=== PATIENT | female | born 1970 | race African-American/Black ===

== ENCOUNTER 2017-02-16 14:17 | Inpatient (IN) | payer OTHER ==
[2017-02-16 15:05] VITALS: BMI 20.2
--- NOTE | 2017-02-16 15:45 | HP ---
CIWA Score - CIWA Score Nausea/Vomitin Muscle Tremors: 3 Anxiety: 3 Agitation: 3 Paroxysmal Sweats: 2 Orientation: 0-Oriented Tacttile Disturbances: 2-Mild Itch/Numbness/Burn Auditory Disturbances: 2-Mild Harshness/Frighten Visual Disturbances: 1-Very Mild Sensitivity Headache: 2-Mild CIWA-Ar Total Score: 21 Admission ROS BHS - HPI Chief Complaint: i need help to stop drinking alcohol Allergies/Adverse Reactions: Allergies Allergy/AdvReac Type Severity Reaction Status Date / Time peach Allergy Intermediate Uncoded 02/16/17 15:46 apple Allergy Uncoded 02/16/17 15:48 History of Present Illness: this 46 years old female with ALCOHOL DEPENDENCE,SEEKING DETOX,LAST TREATMENT 2014 [facility] MULTIPLE ADMISSIONS IN THE PAST, ANXIETY,DEPRESSION SYNCOPE NO SIGNIFICANT PERIOD OF SOBRIETY Exam Limitations: No Limitations - Ebola screening Have you traveled outside of the country in the last 21 days: No Have you had contact with anyone from an Ebola affected area: No Have you been sick,other than usual withdrawal symptoms: No Do you have a fever: No - Review of Systems Constitutional: Loss of Appetite, Malaise, Night Sweats, Changes in sleep, Weakness, Unintentional Wgt. Loss EENT: reports: Nose Congestion Respiratory: reports: No Symptoms reported Cardiac: reports: No Symptoms Reported GI: reports: Diarrhea, Nausea, Vomiting, Abdominal cramping : reports: No Symptoms Reported Musculoskeletal: reports: Back Pain, Muscle Pain Integumentary: reports: Dryness Neuro: reports: No Symptoms reported, Headache, Tremors Endocrine: reports: No Symptoms Reported Hematology: reports: No Symptoms Reported Psychiatric: reports: Anxious, Depressed (INSOMNIA) Patient History - Patient Medical History Hx Anemia: No Hx Asthma: No Hx Chronic Obstructive Pulmonary Disease (COPD): No Hx Cancer: No Hx Cardiac Disorders: No Hx Congestive Heart Failure: No Hx Hypertension: No Hx Hypercholesterolemia: No Hx Pacemaker: No HX Cerebrovascular Accident: No Hx Seizures: No Hx Dementia: No Hx Diabetes: No Hx Gastrointestinal Disorders: No Hx Liver Disease: No Hx Genitourinary Disorders: No Hx Sexually Transmitted Disorders: No Hx Renal Disease (ESRD): No Hx Thyroid Disease: No Hx Human Immunodeficiency Virus (HIV): No (LAST 08/18) Hx Hepatitis C: No Hx Depression: Yes (ANXIETY,INSOMNIA) Hx Suicide Attempt: Yes (ATTEMPTED TO DROWN HERSELF) Hx Bipolar Disorder: No Hx Schizophrenia: No Other Medical History: NO SUICIDAL,NO HOMICIDAL - Patient Surgical History Past Surgical History: Yes Hx Hysterectomy: Yes (IN 2006 FOR FIBROID UTERUS AT [facility]) - PPD History Previous Implant?: Yes Documented Results: Negative w/o proof Implanted On Prior [facility] Admission?: No PPD to be Administered?: Yes - Reproductive History Patient is a Female of Child Bearing Age (11 -55 yrs old): Yes Patient : No - Smoking Cessation Smoking history: Current every day smoker Have you smoked in the past 12 months: Yes Cigars Per Day: 10 Hx Chewing Tobacco Use: No Initiated information on smoking cessation: Yes 'Breaking Loose' booklet given: 02/16/17 - Substance & Tx. History Hx Alcohol Use: Yes Hx Substance Use: No Substance Use Type: Alcohol Hx Substance Use Treatment: Yes ([facility] 2014) - Substances Abused Alcohol Route: Oral Frequency: Daily Amount used: 6 OF 24 OZS OF BEER Age of first use: 17 Date of Last Use: 02/16/17 Family Disease History - Family Disease History Family Disease History: Diabetes: Mother (ALCOHOL,CVA,), Brother ( ALCOHOL,), Sister (ALCOHOL,), Other: Mother Admission Physical Exam [facility] - Vital Signs Vital Signs: Vital Signs - 24 hr 02/16/17 15:01 Temperature 98.3 F Pulse Rate 100 H Respiratory 20 Rate Blood Pressure 147/99 - Physical General Appearance: Yes: Moderate Distress, Tremorous, Irritable, Sweating, Anxious HEENTM: Yes: LYNNE, Pharynx Normal Respiratory: Yes: Within Normal Limits, Lungs Clear, Normal Breath Sounds Neck: Yes: Within Normal Limits, Supple, Trachea in good position Breast: Yes: Breast Exam Deferred Cardiology: Yes: Tachycardia Abdominal: Yes: Within Normal Limits, Normal Bowel Sounds, Non Tender, Soft, Surgical Scar Genitourinary: Yes: Within Normal Limits Back: Yes: Muscle Spasm Musculoskeletal: Yes: Within Normal Limits, Back pain, Muscle Pain Extremities: Yes: Tremors Neurological: Yes: front office specialist II-XII NML intact, Alert, Motor Strength 5/5 Integumentary: Yes: Dry Lymphatic: Yes: Within Normal Limits - Diagnostic (1) Alcohol dependence with uncomplicated withdrawal Current Visit: Yes Status: Acute (2) Syncope Current Visit: Yes Status: Acute (3) Nicotine dependence Current Visit: Yes Status: Acute (4) Weight loss Current Visit: Yes Status: Acute (5) Anxiety and depression Current Visit: Yes Status: Acute (6) History of hysterectomy Current Visit: Yes Status: Acute Cleared for Admission [facility] - Detox or Rehab [facility] Level of Care: Medically Managed Detox Regimen/Protocol: Librium S Breath Alcohol Content Breath Alcohol Content: 0.091 Urine Pregancy Test - Result Urine Test Results: Negative- NO Line Present Urine Drug Screen - Results Drug Screen Negative: Yes
[2017-02-16] MEDS ORDERED: chlordiazePOXIDE HCL 25 MG CAPSULE PO PRN (16:06)
[2017-02-16] MEDS ORDERED: P-EPHED 60MG/TRIPROLIDI 2.5MG TABLET PO PRN (16:06)
[2017-02-16] MEDS ORDERED: IBUPROFEN 400 MG TABLET (FP) PO PRN (16:06)
[2017-02-16] MEDS ORDERED: MAGNESIUM HYDROX 2400MG/30ML ORAL SUSPENSION 30 ML CUP PO PRN (16:06)
[2017-02-16] MEDS ORDERED: MENTHOL/PHENOL 1 EACH UD MM PRN (16:06)
[2017-02-16] MEDS ORDERED: chlordiazePOXIDE HCL 25 MG CAPSULE PO ONE (16:06)
[2017-02-16] MEDS ORDERED: ACETAMINOPHEN 325 MG TABLET (FP) PO PRN (16:06)
[2017-02-16] MEDS ORDERED: guaiFENesin/D-METHORPHAN HB 10 ML UNIT-DOSE CUPS PO PRN (16:06)
[2017-02-16] MEDS ORDERED: hydrOXYzine PAMOATE 25 MG CAPSULE (FP) PO PRN (16:06)
[2017-02-16] MEDS ORDERED: LOPERAMIDE HCL 2 MG CAPSULE PO PRN (16:06)
[2017-02-16] MEDS ORDERED: MAGNESIUM CITRATE 300 ML BOTTLE PO PRN (16:06)
[2017-02-16] MEDS ORDERED: MAG HYDROX/AL HYDROX/SIMETH 30 ML UNIT-DOSE CUP PO PRN (16:06)
[2017-02-16] MEDS: chlordiazePOXIDE HCL 25 MG CAPSULE PO SCH ×2 (18:40→22:35)
[2017-02-16 19:56] LABS: URINE APPEARANCE SLCLOUDY; URINE BILIRUBIN NEGATIVE (NEGATIVE); URINE BLOOD NEGATIVE (NEGATIVE); URINE COLOR LTYELLOW; URINE GLUCOSE (UA) NEGATIVE (NEGATIVE); URINE KETONE NEGATIVE (NEGATIVE); URINE LEUK ESTERASE TRACE (NEGATIVE); URINE NITRITE NEGATIVE (NEGATIVE); URINE PROTEIN NEGATIVE (NEGATIVE); URINE UROBILINOGEN NEGATIVE mg/dL (0.2-1.0)
[2017-02-16 20:17] LABS: URINE BACTERIA RARE /hpf (NONE SEEN); URINE MUCUS RARE; URINE RBC 1 /hpf (0-3); URINE WBC 1 /hpf (3-5)
[2017-02-16] MEDS: THIAMINE HCL 100 MG TABLET (FP) PO SCH (22:35)
[2017-02-17 00:06] LABS: URINE LEUK ESTERASE Negative (NEGATIVE)
[2017-02-17] MEDS: chlordiazePOXIDE HCL 25 MG CAPSULE PO SCH ×4 (05:58→23:44)
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
[2017-02-17 10:55] LABS: HIV 1 & 2 AB NEGATIVE; HIV 1 AGp24 NEGATIVE
[2017-02-17 10:58] LABS: ALBUMIN 3.5 g/dl (3.4-5.0); ALK PHOS 88 U/L (45-117); ANION GAP 7 (8-16); BILIRUBIN,TOTAL 0.9 mg/dL (0.2-1.0); CALCIUM 9.2 mg/dL (8.5-10.1); CO2 29 mmol/L (21-32); CREATININE 0.7 mg/dL (0.55-1.02); GLUCOSE,RANDOM 92 mg/dL (74-106); SGOT/AST 33 U/L (15-37); SGPT/ALT 22 U/L (12-78); TOT PROT 7.9 g/dl (6.4-8.2)
[2017-02-17] MEDS: PRENATAL VITAMINS W/ FOLIC ACID TABLET (FP) PO SCH (11:06)
--- NOTE | 2017-02-17 11:21 | PN ---
[facility] CIWA - CIWA Score Nausea/Vomitin-Mild Nausea/No Vomiting Muscle Tremors: 4-Moderate,w/Arms Extend Anxiety: 4-Mod. Anxious/Guarded Agitation: 4-Moderately Restless Paroxysmal Sweats: 1-Minimal Palms Moist Orientation: 0-Oriented Tacttile Disturbances: 1-Very Mild Itch/Numbness Auditory Disturbances: 0-None Visual Disturbances: 0-None Headache: 0-None Present CIWA-Ar Total Score: 15 BHS Progress Note (SOAP) Subjective: sweat tremor restlessness itching skin Objective: 02/17/17 11:20 Vital Signs Temperature 97.5 F L 02/17/17 06:00 Pulse Rate 57 L 02/17/17 06:00 Respiratory Rate 18 02/17/17 06:00 Blood Pressure 156/76 02/17/17 06:00 O2 Sat by Pulse Oximetry (%) Laboratory Last Values Sodium 139 mmol/L (136-145) 02/17/17 07:30 Potassium 3.9 mmol/L (3.5-5.1) 02/17/17 07:30 Chloride 103 mmol/L (98-107) 02/17/17 07:30 Carbon Dioxide 29 mmol/L (21-32) 02/17/17 07:30 Anion Gap 7 (8-16) L 02/17/17 07:30 BUN 13 mg/dL (7-18) 02/17/17 07:30 Creatinine 0.7 mg/dL (0.55-1.02) 02/17/17 07:30 Creat Clearance w eGFR > 60 (>60) 02/17/17 07:30 Random Glucose 92 mg/dL (74-106) 02/17/17 07:30 Calcium 9.2 mg/dL (8.5-10.1) 02/17/17 07:30 Total Bilirubin 0.9 mg/dL (0.2-1.0) 02/17/17 07:30 AST 33 U/L (15-37) 02/17/17 07:30 ALT 22 U/L (12-78) 02/17/17 07:30 Alkaline Phosphatase 88 U/L (45-117) 02/17/17 07:30 Total Protein 7.9 g/dl (6.4-8.2) 02/17/17 07:30 Albumin 3.5 g/dl (3.4-5.0) 02/17/17 07:30 Urine Color Ltyellow 02/16/17 19:44 Urine Appearance Slcloudy 02/16/17 19:44 Urine pH 5.0 (5.0-8.0) 02/16/17 19:44 Ur Specific [place] 1.010 (1.001-1.035) 02/16/17 19:44 Urine Protein Negative (NEGATIVE) 02/16/17 19:44 Urine Glucose (UA) Negative (NEGATIVE) 02/16/17 19:44 Urine Ketones Negative (NEGATIVE) 02/16/17 19:44 Urine Blood Negative (NEGATIVE) 02/16/17 19:44 Urine Nitrite Negative (NEGATIVE) 02/16/17 19:44 Urine Bilirubin Negative (NEGATIVE) 02/16/17 19:44 Urine Urobilinogen Negative mg/dL (0.2-1.0) 02/16/17 19:44 Ur Leukocyte Esterase Negative (NEGATIVE) 02/16/17 19:44 Urine WBC (Auto) 1 /hpf (3-5) 02/16/17 19:44 Urine RBC (Auto) 1 /hpf (0-3) 02/16/17 19:44 Ur Epithelial Cells Rare /HPF (FEW) 02/16/17 19:44 Urine Bacteria Rare /hpf (NONE SEEN) 02/16/17 19:44 Urine Mucus Rare 02/16/17 19:44 HIV 1&2 Antibody Screen Negative 02/17/17 07:30 HIV P24 Antigen Negative 02/17/17 07:30 lab noted Assessment: 02/17/17 11:21 withdrawal sx Plan: continue detox
[2017-02-17 11:24] LABS: MCH 31.8 pg (25.7-33.7); MCHC 32.4 g/dl (32.0-36.0); MEAN CELL VOLUME 98.3 fl (80-96); MEAN PLT VOLUME 8.7 fl (7.5-11.1); PLATELET COUNT 157 K/MM3 (134-434); RDW 13.9 % (11.6-15.6); WHITE BLOOD COUNT 4.6 K/mm3 (4.0-10.0)
[2017-02-17] MEDS: cloNIDine HCL 0.1 MG TABLET PO PRN (14:47)
[2017-02-17] MEDS: QUEtiapine FUMARATE 50 MG TABLET PO SCH (23:44)
[2017-02-17] MEDS: THIAMINE HCL 100 MG TABLET (FP) PO SCH (23:45)
[2017-02-18] MEDS: chlordiazePOXIDE HCL 25 MG CAPSULE PO SCH ×2 (05:54→10:48)
[2017-02-18] MEDS: cloNIDine HCL 0.1 MG TABLET PO PRN (10:48)
[2017-02-18] MEDS: PRENATAL VITAMINS W/ FOLIC ACID TABLET (FP) PO SCH (10:48)
--- NOTE | 2017-02-18 11:11 | PN ---
[facility] CIWA - CIWA Score Nausea/Vomitin-No Nausea/No Vomiting Muscle Tremors: 4-Moderate,w/Arms Extend Anxiety: 3 Agitation: 3 Paroxysmal Sweats: 3 Orientation: 0-Oriented Tacttile Disturbances: 0-None Auditory Disturbances: 0-None Visual Disturbances: 0-None Headache: 0-None Present CIWA-Ar Total Score: 13 S Progress Note (SOAP) Subjective: anxiety sweats body aches Objective: 02/18/17 11:10 Vital Signs Temperature 98.4 F 02/18/17 10:45 Pulse Rate 67 02/18/17 10:45 Respiratory Rate 18 02/18/17 10:45 Blood Pressure 113/78 02/18/17 10:45 O2 Sat by Pulse Oximetry (%) Laboratory Tests 02/16/17 02/17/17 02/17/17 19:44 07:30 07:30 WBC 4.6 RBC 4.48 Hgb 14.3 Hct 44.0 MCV 98.3 H MCH 31.8 MCHC 32.4 RDW 13.9 Plt Count 157 MPV 8.7 Sodium 139 Potassium 3.9 Chloride 103 Carbon Dioxide 29 Anion Gap 7 L BUN 13 Creatinine 0.7 Creat Clearance w eGFR > 60 Random Glucose 92 Calcium 9.2 Total Bilirubin 0.9 AST 33 ALT 22 Alkaline Phosphatase 88 Total Protein 7.9 Albumin 3.5 Urine Color Ltyellow Urine Appearance Slcloudy Urine pH 5.0 Ur Specific [place] 1.010 Urine Protein Negative Urine Glucose (UA) Negative Urine Ketones Negative Urine Blood Negative Urine Nitrite Negative Urine Bilirubin Negative Urine Urobilinogen Negative Ur Leukocyte Esterase Negative Urine WBC (Auto) 1 Urine RBC (Auto) 1 Ur Epithelial Cells Rare Urine Bacteria Rare Urine Mucus Rare RPR Titer HIV 1&2 Antibody Screen HIV P24 Antigen 02/17/17 02/17/17 07:30 07:30 WBC RBC Hgb Hct MCV MCH MCHC RDW Plt Count MPV Sodium Potassium Chloride Carbon Dioxide Anion Gap BUN Creatinine Creat Clearance w eGFR Random Glucose Calcium Total Bilirubin AST ALT Alkaline Phosphatase Total Protein Albumin Urine Color Urine Appearance Urine pH Ur Specific [place] Urine Protein Urine Glucose (UA) Urine Ketones Urine Blood Urine Nitrite Urine Bilirubin Urine Urobilinogen Ur Leukocyte Esterase Urine WBC (Auto) Urine RBC (Auto) Ur Epithelial Cells Urine Bacteria Urine Mucus RPR Titer Nonreactive HIV 1&2 Antibody Screen Negative HIV P24 Antigen Negative aaox3 ambulating no acute distress Assessment: 02/18/17 11:11 withdrawal sx Plan: continue detox increase fluids
[2017-02-18] MEDS: chlordiazePOXIDE 5 MG CAPSULE PO SCH ×2 (18:21→22:46)
[2017-02-18] MEDS: QUEtiapine FUMARATE 50 MG TABLET PO SCH (22:45)
[2017-02-18] MEDS: THIAMINE HCL 100 MG TABLET (FP) PO SCH (22:45)
--- NOTE | 2017-02-19 01:56 | EKG ---
Test Reason : Blood Pressure : / mmHG Vent. Rate : 071 BPM Atrial Rate : 071 BPM P-R Int : 164 ms QRS Dur : 088 ms QT Int : 412 ms P-R-T Axes : 066 029 026 degrees QTc Int : 447 ms NORMAL SINUS RHYTHM SEPTAL INFARCT , AGE UNDETERMINED ABNORMAL ECG NO PREVIOUS ECGS AVAILABLE Confirmed by ALIN BALBUENA MD ([id number]) on 02/19/2017 1:56:26 AM Referred By: Confirmed By:ALIN BALBUENA MD
[2017-02-19] MEDS: chlordiazePOXIDE 5 MG CAPSULE PO SCH ×2 (05:59→10:33)
[2017-02-19 10:30] VITALS: BP 125/79; PULSE 63; TEMP 97.7
[2017-02-19] MEDS: PRENATAL VITAMINS W/ FOLIC ACID TABLET (FP) PO SCH (10:32)
--- NOTE | 2017-02-19 11:15 | PN ---
S Progress Note Note: pt is feeling fine pt denies of any withdrawals pt will be d/c today.
--- NOTE | 2017-02-19 11:16 | DS ---
[facility] Detox Discharge Summary Admission Date: 02/16/17 Discharge Date: 02/19/17 - History Present History: Alcohol Dependence - Physical Exam Results Vital Signs: Vital Signs Temperature 97.7 F 02/19/17 10:30 Pulse Rate 63 02/19/17 10:30 Respiratory Rate 18 02/19/17 10:30 Blood Pressure 125/79 02/19/17 10:30 O2 Sat by Pulse Oximetry (%) - Treatment Hospital Course: Detox Protocol Followed, Detoxed Safely, Responded well, Discharged Condition Good, Rehab Referral Accepted - Medication Discharge Medications: Ambulatory Orders Quetiapine Fumarate [Seroquel -] 50 mg PO HS #30 tablet 02/17/17 - Diagnosis (1) Alcohol dependence with uncomplicated withdrawal Current Visit: Yes Status: Chronic (2) Alcohol-induced mood disorder Current Visit: Yes Status: Acute (3) Alcohol-induced sleep disorder Current Visit: Yes Status: Acute (4) Anxiety and depression Current Visit: Yes Status: Acute (5) Nicotine dependence Current Visit: Yes Status: Chronic Qualifiers: Nicotine product type: cigarettes Substance use status: uncomplicated Qualified Code(s): F17.210 - Nicotine dependence, cigarettes, uncomplicated (6) Syncope Current Visit: Yes Status: Acute (7) Weight loss Current Visit: Yes Status: Acute - AMA Did Patient Leave Against Medical Advice: No
[2017-02-19] MEDS ORDERED: chlordiazePOXIDE HCL 10 MG CAPSULE PO SCH (17:00)
== END 2017-02-19 10:53 | disposition home or self-care (01) | DRG 775 ==
LOC: YASAS 14:17 → Y6N 15:41
PROVIDERS: ADMIT Internal Medicine; ATTEND Internal Medicine
PROC: HZ2ZZZZ Detoxification Services for Substance Abuse Treatment (ICD-10-PCS; principal; 2017-02-16)
DX: F10.230 Alcohol dependence with withdrawal, uncomplicated (principal); F10.24 Alcohol dependence with alcohol-induced mood disorder; F10.282 Alcohol dependence with alcohol-induced sleep disorder; F17.210 Nicotine dependence, cigarettes, uncomplicated; F41.8 Other specified anxiety disorders; R00.0 Tachycardia, unspecified; Z86.79 Personal history of other diseases of the circulatory system; Z87.898 Personal history of other specified conditions; Z90.710 Acquired absence of both cervix and uterus; Z91.018 Allergy to other foods; Z91.5 Personal history of self-harm
CPT/HCPCS: 36415; 80053; 81003; 81015; 85027; 86593; 87389; 93005; 93010